=== PATIENT | female | born 1965 | race Caucasian/White ===

== ENCOUNTER 2016-11-19 08:00 | Outpatient (CLI) | payer OTHER ==
[2016-11-20 16:46] LABS: TEST RESULT REPORT (())
== END 2016-11-19 08:01 | disposition home or self-care (01) ==
LOC: LAB.R 08:00
PROVIDERS: ATTEND Internal Medicine
DX: R19.7 Diarrhea, unspecified (principal)
CPT/HCPCS: 81599; 87329

== ENCOUNTER 2016-12-21 08:55 | Outpatient (CLI) | payer OTHER ==
[2016-12-21 18:05] LABS: BASOPHILS % (AUTO) 0.6 %; EOSINOPHILS % (AUTO) 0.7 %; HCT - HEMATOCRIT 39.7 % (37.0-47.0); HGB - HEMOGLOBIN 13.5 g/dL (12.0-16.0); LYMPHOCYTES # (AUTO) 1.8 10^3/uL (1.5-3.5); LYMPHOCYTES % (AUTO) 27.8 %; MEAN CORPUSCULAR HEMOGLOBIN 30.3 pg (27.0-31.0); MEAN CORPUSCULAR HGB CONC 34.1 g/dL (32.0-36.0); MEAN CORPUSCULAR VOLUME 89.1 fL (81.0-99.0); MONOCYTES # (AUTO) 0.4 10^3/uL (0.0-1.0); MONOCYTES % (AUTO) 5.8 %; NEUTROPHILS # (AUTO) 4.2 10^3/uL (1.5-6.6); NEUTROPHILS % (AUTO) 65.1 %; NUCLEATED RED BLOOD CELLS AUTO 0.1 /100WBC; RED BLOOD COUNT 4.45 10^6/uL (4.20-5.40); RED CELL DISTRIBUTION WIDTH 12.4 % (12.0-15.0); UNCORRECTED WHITE BLOOD COUNT 6.4 x10^3/uL; WHITE BLOOD COUNT 6.4 x10^3/uL (4.8-10.8)
[2016-12-21 18:58] LABS: ALBUMIN/GLOBULIN RATIO 1.6 (1.0-2.2); BILIRUBIN,TOTAL 1.1 mg/dL (0.2-1.0); BUN - BLOOD UREA NITROGEN 13 mg/dL (6-20); CALCIUM 8.7 mg/dL (8.5-10.3); CARBON DIOXIDE - CO2 28 mmol/L (21-32); CHLORIDE 102 mmol/L (101-111); CHOL/HDL RATIO 3.1 (<4.4); CHOLESTEROL 205 mg/dL; CREATININE 0.7 mg/dL (0.4-1.0); GFR - MDRD 89 (>89); GLUCOSE 84 mg/dL (70-100); HDL CHOLESTEROL 66 mg/dL; LDL/HDL RATIO 1.9 (<4.4); POTASSIUM 3.6 mmol/L (3.5-5.0); SODIUM 136 mmol/L (135-145); TOTAL PROTEIN 6.6 g/dL (6.7-8.2); TRIGLYCERIDES 82 mg/dL; VLDL CHOLESTEROL 16 mg/dL
== END 2016-12-21 08:56 | disposition home or self-care (01) ==
LOC: LAB.F 08:55
PROVIDERS: ATTEND Nurse Practitioner Family
DX: Z00.00 Encounter for general adult medical examination without abnormal findings (principal); E55.9 Vitamin D deficiency, unspecified; E78.5 Hyperlipidemia, unspecified
CPT/HCPCS: 36415; 80053; 80061; 82306; 85025

== ENCOUNTER 2017-02-03 11:51 | Outpatient (CLI) | payer OTHER ==
--- NOTE | 2017-02-04 18:29 | Mammography Report ---
DIGITAL SCREENING MAMMOGRAM: 02/03/2017 CLINICAL INDICATION: A 51-year-old with history of late childbearing for baseline. TECHNIQUE: Routine CC and MLO projections as well as bilateral laterally exaggerated craniocaudal vi ews were obtained of the breasts. The breasts demonstrate heterogeneously dense fibroglandular parenchyma bilaterally. No suspicious m asses, clustered microcalcifications, or regions of architectural distortion are identified. IMPRESSION: NEGATIVE EXAMINATION. RECOMMENDATION: ROUTINE ANNUAL SCREENING UNLESS OTHERWISE CLINICALLY INDICATED. BIRADS CATEGORY: 1, NEGATIVE. STANDARD QUALIFYING STATEMENTS 1. This examination was reviewed with the aid of Computed-Aided Detection (CAD). 2. A negative or benign imaging report should not delay biopsy if clinically suspicious findings are present. Consider surgical consultation if warranted. More than 5% of cancers are not identified b y imaging. 3. Dense breasts may obscure an underlying neoplasm. JOB #: [id number] EXT JOB #:[id number]
== END 2017-02-03 11:52 | disposition home or self-care (01) ==
LOC: DI.S 11:51
PROVIDERS: ATTEND Nurse Practitioner Family
DX: Z12.31 Encounter for screening mammogram for malignant neoplasm of breast (principal)
CPT/HCPCS: 77067

== ENCOUNTER 2017-06-16 10:38 | Outpatient (CLI) | payer OTHER ==
[2017-06-16 12:12] LABS: BASOPHILS % (AUTO) 0.3 %; EOSINOPHILS # (AUTO) 0.1 10^3/uL (0.0-0.7); EOSINOPHILS % (AUTO) 1.1 %; HGB - HEMOGLOBIN 14.1 g/dL (12.0-16.0); LYMPHOCYTES # (AUTO) 0.7 10^3/uL (1.5-3.5); LYMPHOCYTES % (AUTO) 6.6 %; MEAN CORPUSCULAR HEMOGLOBIN 30.5 pg (27.0-31.0); MEAN CORPUSCULAR HGB CONC 34.1 g/dL (32.0-36.0); MEAN CORPUSCULAR VOLUME 89.3 fL (81.0-99.0); MEAN PLATELET VOLUME 7.3 fL (7.9-10.8); MONOCYTES # (AUTO) 0.6 10^3/uL (0.0-1.0); MONOCYTES % (AUTO) 5.2 %; NEUTROPHILS # (AUTO) 9.6 10^3/uL (1.5-6.6); NEUTROPHILS % (AUTO) 86.8 %; PLT - PLATELET COUNT 177 10^3/uL (130-450); RED BLOOD COUNT 4.62 10^6/uL (4.20-5.40); RED CELL DISTRIBUTION WIDTH 12.7 % (12.0-15.0); WHITE BLOOD COUNT 11.1 x10^3/uL (4.8-10.8)
[2017-06-16 12:32] LABS: ALBUMIN 4.3 g/dL (3.2-5.5); ALBUMIN/GLOBULIN RATIO 1.5 (1.0-2.2); BILIRUBIN,TOTAL 0.9 mg/dL (0.2-1.0); CALCIUM 8.6 mg/dL (8.5-10.3); CREATININE 0.6 mg/dL (0.4-1.0); TOTAL PROTEIN 7.1 g/dL (6.7-8.2)
== END 2017-06-16 10:39 | disposition home or self-care (01) ==
LOC: LAB.F 10:38 → LAB 10:39
PROVIDERS: ATTEND Physician Assistant Medical
DX: R53.83 Other fatigue (principal); E55.9 Vitamin D deficiency, unspecified; J02.9 Acute pharyngitis, unspecified; B97.89 Other viral agents as the cause of diseases classified elsewhere
CPT/HCPCS: 36415; 80053; 82306; 85025; 87070; 87077; 87275; 87276

== ENCOUNTER 2020-05-10 14:41 | Outpatient (CLI) | payer OTHER ==
[2020-05-10 15:24] VITALS: BP 97/67
--- NOTE | 2020-05-10 15:24 | SLEEP CARE CONSULTATION ---
Information from patient questionnaire entered by Shawna Lopez. I have reviewed and concur with the information entered by Shawna Lopez. This document represents the service I personally performed and the decisions made by me, Zuleyka Duke ARNP. History of Present Illness Service Date and Time: 05/10/2020 1441 Reason for Visit: New patient Chief Complaint: reports: Unrefreshed sleep, Snoring (not as much in the last several months), Frequent awakenings at night (waking with a sensation like a hall of adrenaline and discomfort in my chest and elevated heartrate). denies: Observed pauses in breathing Date of Onset: 3 years Usual bedtime: 10 PM - 11 PM Time it takes to fall asleep: 5 minutes Snores at night: No (Not currently (in the past 3 months but did previously)) Observed to quit breathing while asleep: No Sleeps alone due to snoring: No Number of times waking at night: 3 - 5 Reasons for waking at night: reports: Other (with a painful "hall of adrenaline" in my chest and elvated heartrate). denies: Choking, Snoring, Gasping for air Toss, Turn, or Twitch while sleeping: No Recalls having dreams: No (rarely 1-2 times a year) Usually gets out of bed at: 6 - 7 AM Feels refreshed in the morning: No Morning headache: No Sleepy or fatigued during the day: Yes (A little in the afternoon) Ever fallen asleep while driving: No Takes day naps: No Prior sleep studies: No Additional HPI information: I had the pleasure of seeing KANU GROVES today regarding the possibility of her having a sleep disorder. Her current complaints include waking several times a night with a sensation like a hall of adrenaline and discomfort in her chest with an elevated heart rate. This started 2 years ago after she had gotten the flu. She was evaluated at the time without any answers. They have ruled out acid reflux. She continues to have these episodes of waking up with heart pounding (10-12 heart beats above normal). They usually happens 3-5 times a night, worsened over the last 3-4 months. She used to snore but has not for many months. She has no pauses in breathing when sleeping. She is waking up frequently and is she is not feeling rested in the mornings. She has never had drowsy driving. Her symptoms happen regardless of her sleeping position. - Parasomnia Symptoms Ever been unable to move upon waking from sleep: No Walks in sleep: No Talks in sleep: No Ever acted out dreams in sleep: No Ever felt weak in the knees when startled or emotional: No Bothered by creepy, crawly, restless sensations in legs: No Problems with memory or concentration: Yes (sometimes) Subjective Initial [place] Sleepiness Scale score: 4 (in 2020) Past Medical History Past Medical History: reports: Arthritis, Anxiety (worry), GERD (working with a GI doctor for possible GERD and/or hiatal hernia), Other (Scoliosis) Social History The patient's occupation is a TEACHER. Patient is and lives in [place]. Have you smoked in the past 12 months: No Alcohol use: Yes Alcohol amount and frequency: 1 glass of wine 1 - 2 x month Caffeine use: Yes Caffeine amount and frequency: a latte 1 - 2 x week Family History Family history of sleep disordered breathing: Yes (brother, mother) Family Hx Sleep Apnea: Mother: Snoring, Sibling: Sleep apnea - Treated (brother) Allergies and Home Medications Drug allergies reviewed: Yes (penicillin, Sulfa drugs) Home medication list reviewed: Yes Allergy and home medication list: Omeprazole Famotidine Mylanta (occasionally) Review of Systems Cardiovascular: reports: palpitations, irregular heart rate or pulse Respiratory: reports: shortness of breath Gastrointestinal: reports: heartburn (currently under control) Neurological: denies: headaches, seizure, head trauma Psychiatric: reports: anxiety (? worry, high stress level) Ear/Nose/Throat: reports: tonsillectomy, wisdom teeth removed. denies: injury to nose Musculoskeletal: reports: joint pain, back pain (scoliosis) Immunologic: reports: other (chronic dehydration) Physical Exam Blood Pressure: 97/67 Cuff size: wrist Heart Rate: 73 O2 Saturation: 90 Height: 5 ft 4 in Weight: 144 lb 12.8 oz Body Mass Index: 24.8 BMI Classification: Healthy weight Nostrils: patent to airflow Turbinates: swollen Mouth and throat: narrow oropharynx Soft palate: long Hard palate: normal Uvula visualization: 50% Mallampati Class II Tongue: enlarged in size with teeth matamoros on lateral edges Tonsils: absent bilaterally Neck: normal w/o lymphadenopathy or thyromegaly Heart: regular rate and rhythm Lungs: clear bilaterally Impression and Plan 1. Suspected Obstructive Sleep Apnea-Hypopnea Syndrome, as suggested by a history of irregular snoring, frequent awakening during the night, unrefreshed sleep, and cognitive impairment. Narrow oropharynx and obesity are common predisposing factors for obstructive sleep apnea-hypopnea syndrome. I recommend proceeding to polysomnography to confirm the diagnosis and to assess severity. If the patient has significant sleep disordered breathing, a manual CPAP titration study will also be performed to find the optimal treatment pressure. I informed the patient of what the sleep studies involve and after some discussion, obtained agreement to proceed. The pathophysiology of obstructive sleep apnea-hypopnea syndrome was discussed with the patient and health risks of cardiovascular and cerebrovascular disease if not treated. Risks of drowsy driving discussed in detail and patient advised to avoid long distance driving and to basting puller at the first sign of drowsiness. Patient agreed to plan. * Schedule polysomnography +- manual CPAP titration study and return in 1-2 weeks after the study to discuss result and initiate therapy. * Avoid long distance driving or driving when feeling sleepy. * Avoid alcohol, sedative and muscle relaxant around bedtime. * Review instructions provided by trained office staff on how to prepare for the sleep study. * Return for follow-up after sleep study completed. Visit Type: In Office Time Spent with Patient (minutes): 30 Provider Statement: I spent 100% of the Face to Face Visit with the patient with greater than 50% spent counseling the patient and coordination of care.
== END 2020-05-10 14:42 | disposition home or self-care (01) ==
LOC: SC 14:41
PROVIDERS: ATTEND Nurse Practitioner Family
DX: G47.8 Other sleep disorders (principal); R41.89 Other symptoms and signs involving cognitive functions and awareness; R06.83 Snoring
CPT/HCPCS: 99203; 99212

== ENCOUNTER 2020-05-31 10:16 | Outpatient (CLI) | payer OTHER | END 2020-05-31 10:17 | disposition home or self-care (01) | LOC: SC 10:16 | PROVIDERS: ATTEND Nurse Practitioner Family | DX: G47.33 Obstructive sleep apnea (adult) (pediatric) (principal); R00.0 Tachycardia, unspecified | CPT/HCPCS: 95806 ==

== ENCOUNTER 2020-06-06 11:37 | Outpatient (CLI) | payer OTHER ==
--- NOTE | 2020-06-06 12:18 | SLEEP CARE CONSULTATION ---
Information from patient questionnaire entered by Cheryl Wu. I have reviewed and concur with the information entered by Cheryl Wu. This document represents the service I personally performed and the decisions made by , Zuleyka Duke ARNP. History of Present Illness Service Date and Time: 06/06/2020 1137 Initial [place] Sleepiness Scale score: 4 (in 2020) Current [place] Sleepiness Scale score: 4 Additional HPI information: KANU GROVES returns for follow up and results of the recently performed home sleep study. She was found to have mild obstructive sleep apnea with an average AHI of 14.9 and tio oxygen saturation of 79%. I explained the pathophysiology behind obstructive sleep apnea. We then spent quite a bit of time discussing different treatment options. For mild obstructive sleep apnea, surgery and oral appliance are alternatives to nasal CPAP therapy but in moderate or severe cases, nasal CPAP is the most effective and reliable treatment. Because apnea is primarily in supine position, then po sitional management therapy could be effective. Methods discussed such as positioning with pillows, using a T-shirt with tennis balls in the back, and shown commercial products that have a pillow format on back to prevent supine sleep. I reviewed the impact of weight changes on sleep apnea and strongly recommended losing weight. Sleep Study - Results Type of Sleep Study: Home sleep study Prior sleep studies: No Polysomnography/Home Sleep Study results: Physician Impression: The quality of the study is good. The length of the study is adequate (> 240 minutes). Please also see the tabulated and graphic data. 1. Obstructive Sleep Apnea-Hypopnea (ICD-10 G47.33), mild, with an AHI of 14.9 /hr and tio SaO2 of 79%. During the study, the patient had 79 apneas (79 obstructive, 0 central, 0 mixed) and 40 hypopneas. The longest episode lasted 64.5 seconds. The respiratory events occurred almost exclusively during supine sleep (supine AHI was 30.4 and non-supine, 0.48). 2. Hypoxemia (ICD-10 R09.02), moderate, with the lowest oxygen saturation of 79 % and 7.3 minutes with SaO2 under 90%. Baseline oxygen saturation was normal (Average oxygen saturation was 93%). 3. Tachycardia, with maximum recorded heart rate of 210 beats per minute (cannot be verified). Allergies and Home Medications Drug allergies reviewed: Yes (penicillin, sulfa) Home medication list reviewed: Yes (reducing omeprazole and famotidine) Review of Systems Review of systems same as previous: Yes (no changes) Physical Exam Heart Rate: 68 O2 Saturation: 90 Height: 5 ft 4 in Weight: 145 lb Body Mass Index: 24.9 BMI Classification: Healthy weight Impression and Plan 1. Obstructive Sleep Apnea-Hypopnea Syndrome, mild, with lowest oxygen saturation of 79%. Patient Positive pressure therapy could benefit anxiety and gastric reflux. Since patients apnea is primarily in supine position, patient also advised to try positional therapy and she agreed with plan. She is also advised to maintain a healthy weight as this will reduce snoring and apnea. An oral appliance can also be used for snoring but often is not covered by insurance. Follow up is scheduled for six months. She does not like to sleep on her back because it is very uncomfortable due to her scoliosis. Patient does not have excessive daytime sleepiness or fatigue. So, I think a longer follow up is adequate. She voiced agreement. She mainly came in for evaluation of her "adrenaline rushes" that she gets at night. She states the night of the study she was not able to sleep on her side much like she normally does and she had 2 episodes that night. This is about the same as she would have when sleeping on her side. She did not seem to have more episodes even though she has 30.4 AHI supine compared to 0.48 AHI non-supine. I think positional therapy is a good choice for control of her apnea. She will need to follow up with her PCP for further evaluation of these "adrenalin rushes". 2. Hypoxemia, moderate, with the lowest oxygen saturation of 79 % and 7.3 minutes with SaO2 under 90%. Her baseline oxygen saturation was normal with an average oxygen saturation at 93%. 3. Tachycardia, with maximum recorded heart rate of 210 beats per minute [address] Dr. Koo, who reviewed and scored sleep study, noted that it could not be verified. Patient was advised to follow up with PCP for possible heart monitor to evaluate her elevated heart rate. * Positional therapy. * Follow up with PCP for adrenalin rushes and possible tachycardia noted on HST * Maintain a healthy weight. * Avoid supine sleep * Return in six months to assess response to positional therapy. Counseling Topics: Weight control Visit Type: In Office Time Spent with Patient (minutes): 28 Provider Statement: I spent 100% of the Face to Face Visit with the patient with greater than 50% spent counseling the patient and coordination of care.
== END 2020-06-06 11:38 | disposition home or self-care (01) ==
LOC: SC 11:37
PROVIDERS: ATTEND Nurse Practitioner Family
DX: G47.33 Obstructive sleep apnea (adult) (pediatric) (principal); R00.0 Tachycardia, unspecified
CPT/HCPCS: 99212; 99213

== ENCOUNTER 2020-09-03 16:52 | Outpatient (CLI) | payer OTHER | END 2020-09-03 16:53 | disposition home or self-care (01) | LOC: COV 16:52 | PROVIDERS: ATTEND Internal Medicine Cardiovascular Disease | DX: Z01.812 Encounter for preprocedural laboratory examination (principal); R06.02 Shortness of breath; Z20.822 Contact with and (suspected) exposure to COVID-19 ==

== ENCOUNTER 2020-12-31 08:44 | Outpatient (CLI) | payer OTHER ==
--- NOTE | 2021-01-01 10:09 | Mammography Report ---
BILATERAL DIGITAL SCREENING MAMMOGRAM 3D/2D WITH EXAGGERATED CC: 12/31/2020 CLINICAL: Family history of breast cancer. Comparison is made to exam dated: 02/03/2017 mammogram - [facility]. The tissue o f both breasts is heterogeneously dense. This may lower the sensitivity of mammography. No significant masses, calcifications, or other findings are seen in either breast. There has been no significant interval change. IMPRESSION: NEGATIVE There is no mammographic evidence of malignancy. A 1 year screening mammogram is recommended. This exam was interpreted at Station ID: [id number]. NOTE: For mammograms, a report in lay terms will be sent to the patient. Approximately 15% of breast malignancies will not be visualized mammographically. In the management of a palpable breast mass, a negative mammogram must not discourage biopsy of a clinically suspicious lesion. Electronically Signed By: Desire ashley/[email or web address]:12/31/2020 10:17:36 ACR BI-RADS Category 1: Negative 3341F PARENCHYMAL PATTERN: (D) - The breast(s) demonstrate(s) heterogeneously dense fibroglandular princess leblanc. BI-RADS CATEGORY: (1) - 1 RECOMMENDATION: (ANNUAL) - Recommend routine annual screening mammography. [id number] 1 year screening LATERALITY: (B)
== END 2020-12-31 08:45 | disposition home or self-care (01) ==
LOC: DI.S 08:44
DX: Z12.31 Encounter for screening mammogram for malignant neoplasm of breast (principal); Z80.3 Family history of malignant neoplasm of breast

== ENCOUNTER 2021-03-13 10:54 | Outpatient (CLI) | payer OTHER | END 2021-03-13 10:55 | disposition home or self-care (01) | LOC: LAB.S 10:54 | PROVIDERS: ATTEND Internal Medicine Endocrinology, Diabetes & Metabolism | DX: R00.2 Palpitations (principal) | CPT/HCPCS: 36415; 83835 ==

== ENCOUNTER 2022-01-09 07:23 | Outpatient (CLI) | payer OTHER ==
[2022-01-09 14:37] LABS: BASOPHILS % (AUTO) 0.9 %; EOSINOPHILS # (AUTO) 0.1 10^3/uL (0.0-0.7); EOSINOPHILS % (AUTO) 1.1 %; HCT - HEMATOCRIT 42.1 % (37.0-47.0); HGB - HEMOGLOBIN 13.8 g/dL (12.0-16.0); LYMPHOCYTES # (AUTO) 1.6 10^3/uL (1.5-3.5); LYMPHOCYTES % (AUTO) 35.1 %; MEAN CORPUSCULAR HEMOGLOBIN 29.4 pg (27.0-31.0); MEAN CORPUSCULAR HGB CONC 32.8 g/dL (32.0-36.0); MEAN CORPUSCULAR VOLUME 89.8 fL (81.0-99.0); MEAN PLATELET VOLUME 9.8 fL (7.9-10.8); MONOCYTES # (AUTO) 0.5 10^3/uL (0.0-1.0); MONOCYTES % (AUTO) 10.2 %; NEUTROPHILS # (AUTO) 2.4 10^3/uL (1.5-6.6); NEUTROPHILS % (AUTO) 52.7 %; PLT - PLATELET COUNT 209 10^3/uL (130-450); RED BLOOD COUNT 4.69 10^6/uL (4.20-5.40); WHITE BLOOD COUNT 4.6 x10^3/uL (4.8-10.8)
[2022-01-09 15:05] LABS: % IRON SATURATION 30 % (20-50); ALBUMIN 4.4 g/dL (3.2-5.5); ALKALINE PHOSPHATASE 73 IU/L (42-121); ALT ALANINE AMINOTRANSFERASE 40 IU/L (10-60); AST ASPARTATE AMINOTRANSFERASE 39 IU/L (10-42); BILIRUBIN,DIRECT 0.1 mg/dL (0.1-0.5); BILIRUBIN,TOTAL 0.9 mg/dL (0.2-1.0); CHOL/HDL RATIO 2.9 (<4.4); CHOLESTEROL 230 mg/dL; CRP HIGH SENSITIVITY 3.4 mg/L; GAMMA GLUTAMYL TRANSPEPTIDASE 36 IU/L (8-38); HDL CHOLESTEROL 80 mg/dL; IRON 87 ug/dL (28-170); LDL CHOLESTEROL,CALCULATED 134 mg/dL; LDL/HDL RATIO 1.7 (<4.4); TOTAL IRON BINDING CAPACITY 290 ug/dL (250-450); TOTAL PROTEIN 6.7 g/dL (6.7-8.2); TRANSFERRIN 207 mg/dL (192-382); TRIGLYCERIDES 80 mg/dL; VLDL CHOLESTEROL 16 mg/dL
== END 2022-01-09 07:24 | disposition home or self-care (01) ==
LOC: LAB.S 07:23
PROVIDERS: ATTEND Naturopath
DX: D64.9 Anemia, unspecified (principal); R10.13 Epigastric pain; K82.9 Disease of gallbladder, unspecified; R00.0 Tachycardia, unspecified; E72.12 Methylenetetrahydrofolate reductase deficiency; E78.5 Hyperlipidemia, unspecified; J84.10 Pulmonary fibrosis, unspecified; E55.9 Vitamin D deficiency, unspecified
CPT/HCPCS: 36415; 80061; 80076; 81291; 81599; 82306; 82977; 83540; 83721; 84466; 85025; 86141

== ENCOUNTER 2022-01-21 14:43 | Outpatient (CLI) | payer OTHER | END 2022-01-21 23:59 | disposition home or self-care (01) | LOC: LAB 14:43 | PROVIDERS: ATTEND Physician Assistant Medical | DX: R07.0 Pain in throat (principal) | CPT/HCPCS: 87070 ==

== ENCOUNTER 2023-02-22 14:02 | Outpatient (CLI) | payer OTHER ==
--- NOTE | 2023-02-23 12:21 | Mammography Report ---
BILATERAL DIGITAL SCREENING MAMMOGRAM 3D/2D WITH EXAGGERATED CC: 02/22/2023 CLINICAL: Routine screening. Family history of breast cancer. Comparison is made to exams dated: 12/31/2020 mammogram and 02/03/2017 mammogram - [facility]. Both breasts are heterogeneously dense, which may obscure small masses (category c / 51-75% glandular tissue). No significant masses, calcifications, or other findings are seen in either breast. There has been no significant interval change. IMPRESSION: NEGATIVE There is no mammographic evidence of malignancy. A 1 year screening mammogram is recommended. Based on the Tyrer Cuzick model (a risk assessment model) the patients lifetime risk is 14.7% and he r 10 year risk is 4.6%. According to the ACR, ACS, and NCCN guidelines, an annual breast MRI exam gabino ng with mammogram is recommended if the patients lifetime risk is 20% or greater. This exam was interpreted at Station ID: [id number]. NOTE: For mammograms, a report in lay terms will be sent to the patient. Approximately 15% of breast malignancies will not be visualized mammographically. In the management of a palpable breast mass, a negative mammogram must not discourage biopsy of a clinically suspicious lesion. Electronically Signed By: Reji julio/[email or web address]:02/22/2023 15:56:45 letter sent: No_Letter ACR BI-RADS Category 1: Negative 3341F PARENCHYMAL PATTERN: (D) - The breast(s) demonstrate(s) heterogeneously dense fibroglandular princess leblanc. BI-RADS CATEGORY: (1) - 1 Mammogram [id number] 1 year screening LATERALITY: (B)
== END 2023-02-22 14:03 | disposition home or self-care (01) ==
LOC: DI.S 14:02
PROVIDERS: ATTEND Nurse Practitioner Acute Care
DX: Z12.31 Encounter for screening mammogram for malignant neoplasm of breast (principal); Z80.3 Family history of malignant neoplasm of breast; R92.333 Mammographic heterogeneous density, bilateral breasts